=== PATIENT | male | born 1990 | race Caucasian/White ===

== ENCOUNTER → 2024-01-01 06:24 | Day surgery (SDC) | payer BC, SELFPAY | LOC: GI 06:24 | PROVIDERS: ATTENDING PHYSICIAN Internal Medicine | DX: K74.60 Unspecified cirrhosis of liver (principal); I85.10 Secondary esophageal varices without bleeding; K29.70 Gastritis, unspecified, without bleeding; K22.89 Other specified disease of esophagus; K44.9 Diaphragmatic hernia without obstruction or gangrene | CPT/HCPCS: 43239; 88305; 88342 ==

== ENCOUNTER 2024-12-16 06:23 | Day surgery (SDC) | payer BC, SELFPAY | END 2024-12-16 10:16 | disposition home or self-care (01) | LOC: GI 06:23 | PROVIDERS: ATTENDING PHYSICIAN Internal Medicine | DX: K64.4 Residual hemorrhoidal skin tags (principal); K52.9 Noninfective gastroenteritis and colitis, unspecified; K63.89 Other specified diseases of intestine; K51.40 Inflammatory polyps of colon without complications; K51.914 Ulcerative colitis, unspecified with abscess; K51.214 Ulcerative (chronic) proctitis with abscess | CPT/HCPCS: 45385; 45380; 88305 ==

== ENCOUNTER → 2025-03-24 11:20 | Outpatient (REF) | payer BC, SELFPAY | LOC: HWRAD 11:20 | PROVIDERS: ATTENDING PHYSICIAN Internal Medicine; FAMILY PHYSICIAN Family Medicine | DX: K70.30 Alcoholic cirrhosis of liver without ascites (principal) | CPT/HCPCS: 76700 ==

== ENCOUNTER → 2025-06-07 18:27 | Outpatient (REF) | payer BC, SELFPAY | LOC: MRI 3T 18:27 | PROVIDERS: ATTENDING PHYSICIAN Internal Medicine Gastroenterology; FAMILY PHYSICIAN Family Medicine | DX: K74.60 Unspecified cirrhosis of liver (principal); K51.90 Ulcerative colitis, unspecified, without complications | CPT/HCPCS: 74183; A9581 ==

== ENCOUNTER → 2025-09-21 19:59 | Outpatient (REF) | payer BC, SELFPAY | LOC: MRI 19:59 | PROVIDERS: ATTENDING PHYSICIAN Internal Medicine Gastroenterology; FAMILY PHYSICIAN Family Medicine | DX: K74.60 Unspecified cirrhosis of liver (principal) | CPT/HCPCS: 74183; A9581 ==

== ENCOUNTER → 2025-09-28 10:33 | Outpatient (REF) | payer BC, SELFPAY | LOC: RAD 10:33 | PROVIDERS: ATTENDING PHYSICIAN Internal Medicine Gastroenterology; FAMILY PHYSICIAN Family Medicine; REFERRING PHYSICIAN Internal Medicine | DX: K74.60 Unspecified cirrhosis of liver (principal) | CPT/HCPCS: 76700 ==

== ENCOUNTER 2025-10-06 06:26 | Day surgery (SDC) | payer BC, SELFPAY | END 2025-10-06 10:02 | disposition home or self-care (01) | LOC: GI 06:26 | PROVIDERS: ATTENDING PHYSICIAN Internal Medicine; FAMILY PHYSICIAN Family Medicine | DX: K51.00 Ulcerative (chronic) pancolitis without complications (principal); K64.4 Residual hemorrhoidal skin tags; K52.89 Other specified noninfective gastroenteritis and colitis; K52.9 Noninfective gastroenteritis and colitis, unspecified | CPT/HCPCS: 45380; 88305 ==

== ENCOUNTER → 2025-10-12 14:15 | Outpatient (REF) | payer BC, SELFPAY | LOC: REG 14:15 | PROVIDERS: ATTENDING PHYSICIAN Internal Medicine; FAMILY PHYSICIAN Family Medicine | DX: R19.7 Diarrhea, unspecified (principal) | CPT/HCPCS: 87324; 87449 ==